=== PATIENT | male | born 1960 | race Caucasian/White ===

== ENCOUNTER → 2022-04-18 | Outpatient (CLI) | payer MEDICARE ==
[~2022-04-18] MED LIST: BACTRIM DS 8001 TAB PO
[2022-04-18 16:30] LABS: ALBUMIN 3.8 gm/dL (3.4-4.8); BILIRUBIN,TOTAL 0.4 mg/dL (0.2-1.2); CALCIUM 8.4 mg/dL (8.4-10.2); CREATININE, serum 0.99 mg/dL (0.72-1.25); TOTAL PROTEIN 7.2 gm/dL (6.2-8.1); URIC ACID 4.4 mg/dL (3.5-7.2)
[2022-04-18 16:54] LABS: PH 5 (5-8); SQUAMOUS EPITHELIAL None Seen /hpf (0-10); URINE APPEARANCE Clear (CLEAR/HAZY); URINE BACTERIA None Seen /hpf (NONE SEEN); URINE BILIRUBIN Negative (NEGATIVE); URINE BLOOD 1+ (NEGATIVE); URINE COLOR Yellow (YELLOW); URINE GLUCOSE Negative (NEGATIVE); URINE KETONE Negative (NEGATIVE); URINE LEUKOCYTE ESTERASE Negative (NEGATIVE); URINE NITRATE Negative (NEGATIVE); URINE PROTEIN(semi-quant) Negative (NEGATIVE); URINE RBC 0-2 /hpf (0-2); URINE UROBILINOGEN Negative (NEGATIVE); URINE WBC 0-2 /hpf (0-2)
[2022-04-18 17:00] LABS: COLLECTION METHOD CLEAN CATCH
== END ==
LOC: ZCOL.LAB 13:52
PROVIDERS: Physician Assistant Medical
DX: M10.9 Gout, unspecified (principal); R60.9 Edema, unspecified; E11.9 Type 2 diabetes mellitus without complications